=== PATIENT | female | born 1975 | race Caucasian/White ===

== ENCOUNTER 2016-12-29 06:31 | Emergency (ER) | payer SELFPAY ==
--- NOTE | 2016-12-29 07:08 | ER Document Report ---
ED General - General Chief Complaint: Abdominal Pain Stated Complaint: ABDOMINAL PAIN Mode of Arrival: Ambulatory Information source: Patient Notes: 41-year-old female presents with complaints of suprapubic pressure with burning on urination over the past 2-3 days. Patient denies any fevers chills nausea vomiting or diarrhea TRAVEL OUTSIDE OF THE [place] IN LAST 30 DAYS: No - HPI Onset: Other Onset/Duration: Persistent Quality of pain: Achy, Pressure Severity: Mild Pain Level: 1 Associated symptoms: Other Exacerbated by: Other - Urination Relieved by: Denies Similar symptoms previously: No Recently seen / treated by doctor: No - Related Data Allergies/Adverse Reactions: No Known Allergies Allergy (Verified 09/17/16 18:11) Past Medical History - Social History Smoking Status: Current Every Day Smoker Cigarette use (# per day): Yes Chew tobacco use (# tins/day): No Smoking Education Provided: No Frequency of alcohol use: Occasional Drug Abuse: None Family History: Reviewed & Not Pertinent Patient has suicidal ideation: No Patient has homicidal ideation: No Renal/ Medical History: Denies: Hx Peritoneal Dialysis Surgical Hx: Negative - Immunizations Hx Diphtheria, Pertussis, Tetanus Vaccination: Yes Review of Systems - Review of Systems Notes: REVIEW OF SYSTEMS: CONSTITUTIONAL : Denies fever, chills, or sweats. Denies recent illness. EENT: Denies eye, ear, throat, or mouth pain or symptoms. Denies nasal or sinus congestion or discharge. Denies throat, tongue, or mouth swelling or difficulty swallowing. CARDIOVASCULAR: Denies chest pain. Denies palpitations or racing or irregular heart beat. Denies ankle edema. RESPIRATORY: Denies cough, cold, or chest congestion. Denies shortness of breath, difficulty breathing, or wheezing. GASTROINTESTINAL: Suprapubic pain GENITOURINARY: Burning on urination FEMALE GENITOURINARY: Denies vaginal bleeding, heavy or abnormal periods, irregular periods. Denies vaginal discharge or odor. MUSCULOSKELETAL: Denies back or neck pain or stiffness. Denies joint pain or swelling. SKIN: Denies rash, lesions or sores. HEMATOLOGIC : Denies easy bruising or bleeding. LYMPHATIC: Denies swollen, enlarged glands. NEUROLOGICAL: Denies confusion or altered mental status. Denies passing out or loss of consciousness. Denies dizziness or lightheadedness. Denies headache. Denies weakness or paralysis or loss of use of either side. Denies problems with gait or speech. Denies sensory loss, numbness, or tingling. Denies seizures. PSYCHIATRIC: Denies anxiety or stress. Denies depression, suicidal ideation, or homicidal ideation. ALL OTHER SYSTEMS REVIEWED AND NEGATIVE. Dictation was performed using [email or web address] voice recognition software PHYSICAL EXAMINATION: GENERAL: Well-appearing, well-nourished and in no acute distress. HEAD: Atraumatic, normocephalic. EYES: Pupils equal round and reactive to light, extraocular movements intact, conjunctiva are normal. ENT: Nares patent, oropharynx clear without exudates. Moist mucous membranes. NECK: Normal range of motion, supple without lymphadenopathy LUNGS: Breath sounds clear to auscultation bilaterally and equal. No wheezes rales or rhonchi. HEART: Regular rate and rhythm without murmurs ABDOMEN: Soft, pressure sensation noted in suprapubic region Female : deferred Musculoskeletal: Normal range of motion, no pitting or edema. No cyanosis. NEUROLOGICAL: Cranial nerves grossly intact. Normal speech, normal gait. Normal sensory, motor exams PSYCH: Normal mood, normal affect. SKIN: Warm, Dry, normal turgor, no rashes or lesions noted. Physical Exam - Vital signs Vitals: Temp Pulse Resp BP Pulse Ox 97.5 F 102 H 16 115/75 97 12/29/16 06:34 12/29/16 06:34 12/29/16 06:34 12/29/16 06:34 12/29/16 06:34 Course - Re-evaluation Re-evalutation: 12/29/16 07:08 Physical examination presentation are concerning for urinary tract infection otherwise the patient does not appear ill 12/29/16 07:26 12/29/16 07:39 Urinalysis is consistent with UTI, patient will be started on antibiotics and is otherwise stable for discharge After performing a Medical Screening Examination, I estimate there is LOW risk for ACUTE APPENDICITIS, BOWEL OBSTRUCTION, ACUTE CHOLECYSTITIS, PERFORATED DIVERTICULITIS, INCARCERATED HERNIA, PANCREATITIS, PELVIC INFLAMMATORY DISEASE, PERFORATED ULCER, ECTOPIC , or TUBO-OVARIAN ABSCESS, thus I consider the discharge disposition reasonable. Also, there is no evidence or peritonitis , sepsis, or toxicity. The patient and I have discussed the diagnosis and risks , and we agree with discharging home with close follow-up with the understanding that symptoms and presentations can change. We also discussed returning to the Emergency Department immediately if new or worsening symptoms occur. We have discussed the symptoms which are most concerning (e.g., bloody stool, fever, changing or worsening pain, vomiting) that necessitate immediate return. - Vital Signs Vital signs: Temp Pulse Resp BP Pulse Ox 97.5 F 102 H 16 115/75 97 12/29/16 06:34 12/29/16 06:34 12/29/16 06:34 12/29/16 06:34 12/29/16 06:34 - Laboratory Laboratory results interpreted by me: 12/29/16 07:00 Urine Protein 100 H Urine Ketones TRACE H Ur Leukocyte Esterase MODERATE H Discharge - Discharge Clinical Impression: UTI (urinary tract infection) Qualifiers: Urinary tract infection type: acute cystitis Hematuria presence: with hematuria Qualified Code(s): N30.01 - Acute cystitis with hematuria Abdominal pain Qualifiers: Abdominal location: lower abdomen, unspecified Qualified Code(s): R10.30 - Lower abdominal pain, unspecified Condition: Stable Disposition: HOME, SELF-CARE Instructions: Urinary Tract Infection ([facility]) Additional Instructions: Follow up with your physician tomorrow for further care or return to the ED IMMEDIATELY if symptoms worsen or new concerns occur Prescriptions: Cephalexin Monohydrate [Keflex 500 mg Capsule] 500 mg PO BID #14 capsule
[2016-12-29 07:34] LABS: APPEARANCE,URINE TURBID; BILIRUBIN,URINE NEGATIVE (NEGATIVE); GLUCOSE, URINE NEGATIVE (NEGATIVE); KETONES,URINE TRACE mg/dL (NEGATIVE); LEUKOCYTE ESTERASE,URINE MODERATE (NEGATIVE); NITRITE,URINE NEGATIVE (NEGATIVE); PROTEIN,URINE 100 mg/dL (NEGATIVE); URINE SPECIFIC GRAVITY 1.029; UROBILINOGEN,URINE NEGATIVE mg/dL (<2.0)
[2016-12-29 08:10] VITALS: BP 105/51
== END 2016-12-29 08:10 | disposition home or self-care (01) ==
LOC: ER 06:31
DX: N30.01 Acute cystitis with hematuria (principal); R10.30 Lower abdominal pain, unspecified; F17.210 Nicotine dependence, cigarettes, uncomplicated
CPT/HCPCS: 81001; 81025; 99284

== ENCOUNTER 2017-01-06 12:28 | Emergency (ER) | payer SELFPAY ==
--- NOTE | 2017-01-06 12:36 | ER Document Report ---
ED Medical Screen (RME) - General Stated Complaint: POSSIBLE EYE INFECTION Mode of Arrival: Ambulatory Information source: Patient Notes: Patient presents emergency department with right eye irritation since Sunday. She reports is now moving into her left eye. Patient reports crusty when she wakes up in the morning. Does not wear contacts. Denies injury. I have greeted and performed a rapid initial assessment of this patient. A comprehensive ED assessment and evaluation of the patient, analysis of test results and completion of the medical decision making process will be conducted by additional ED providers. TRAVEL OUTSIDE OF THE [place] IN LAST 30 DAYS: No - Related Data Allergies/Adverse Reactions: No Known Allergies Allergy (Verified 09/17/16 18:11) Past Medical History Renal/ Medical History: Denies: Hx Peritoneal Dialysis - Immunizations Hx Diphtheria, Pertussis, Tetanus Vaccination: Yes
[2017-01-06] MEDS ORDERED: TETRACAINE HCL 0.5% OPH SOLN 2 ML OD ONE (13:47)
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
[2017-01-06 14:25] VITALS: BP 118/75
== END 2017-01-06 14:22 | disposition home or self-care (01) ==
LOC: ER 12:28
DX: H10.9 Unspecified conjunctivitis (principal); H57.11 Ocular pain, right eye; F17.210 Nicotine dependence, cigarettes, uncomplicated
CPT/HCPCS: 99283

== ENCOUNTER 2017-08-05 17:39 | Emergency (ER) | payer SELFPAY ==
[2017-08-05 17:48] VITALS: BP 119/78
[2017-08-05] MEDS ORDERED: OXYCODONE-ACETAMINOPHEN 5-325 MG TABLET PO ONE (18:22)
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
[2017-08-05] MEDS ORDERED: HYDROCODONE/ACETAMINOPHEN 5-325 MG 6 TAB/DSPK PO PRN (19:15)
== END 2017-08-05 19:25 | disposition home or self-care (01) ==
LOC: ER 17:39
DX: S89.92XA Unspecified injury of left lower leg, initial encounter (principal); V17.0XXA Pedal cycle driver injured in collision with fixed or stationary object in nontraffic accident, initial encounter; Y93.55 Activity, bike riding; F17.200 Nicotine dependence, unspecified, uncomplicated; Z98.51 Tubal ligation status
CPT/HCPCS: 99283

== ENCOUNTER 2017-11-14 20:57 | Emergency (ER) | payer SELFPAY ==
--- NOTE | 2017-11-14 23:19 | ER Document Report ---
ED Medical Screen (RME) - General Chief Complaint: Abdominal Pain Stated Complaint: ABDOMINAL PAIN,NAUSEA,HEADACHE Time Seen by Provider: 11/14/17 23:16 Mode of Arrival: Ambulatory Information source: Patient Notes: Pt is a 42 year old female who presents to the ER today for a mass in her left upper abdomen that's been there for "a long time" but started hurting her 2 days ago with n/v. She admits she hasn't really had a bowel movement in 2 days. Denies diarrhea, fever/chills. hasn't been evaluated for this mass. TRAVEL OUTSIDE OF THE [place] IN LAST 30 DAYS: No - Related Data Allergies/Adverse Reactions: Penicillins Allergy (Verified 08/05/17 17:45) Past Medical History - General Information source: Patient Renal/ Medical History: Denies: Hx Peritoneal Dialysis Past Surgical History: Reports: Hx Tubal Ligation - Immunizations Hx Diphtheria, Pertussis, Tetanus Vaccination: Yes - 2014 History of Influenza Vaccine for 07/2017 - 12/2017 Season: Yes Influenza Administration Date for 07/2017 - 12/2017 Season: 07/29/16 Review of Systems - Review of Systems Gastrointestinal: See HPI Physical Exam - Notes Notes: PHYSICAL EXAMINATION: GENERAL: Well-appearing and in no acute distress. ABDOMEN: Soft, LUQ/epigastric mass with tenderness. No guarding, no rebound
[2017-11-14 23:41] LABS: ABSOLUTE BASOPHILS # (AUTO) 0.1 10^3/uL (0.0-0.2); ABSOLUTE EOSINOPHILS # (AUTO) 0.1 10^3/uL (0.0-0.6); ABSOLUTE LYMPHOCYTES (AUTO) 2.4 10^3/uL (0.5-4.7); ABSOLUTE MONOCYTES (AUTO) 0.5 10^3/uL (0.1-1.4); ABSOLUTE NEUT (AUTO) 4.5 10^3/uL (1.7-8.2); EOSINOPHILS % (AUTO) 1.7 % (0-6); HEMATOCRIT 42.3 % (36.0-47.0); HEMOGLOBIN 14.4 g/dL (12.0-15.5); LYMPHOCYTES % (AUTO) 31.7 % (13-45); MEAN CORPUSCULAR HEMOGLOBIN 33.7 pg (27.0-33.4); MEAN CORPUSCULAR HGB CONC 34.1 g/dL (32.0-36.0); MEAN CORPUSCULAR VOLUME 99 fl (80-97); MONOCYTES % (AUTO) 6.4 % (3-13); PLATELET COUNT 235 10^3/uL (150-450); RED BLOOD COUNT 4.28 10^6/uL (3.72-5.28); RED CELL DISTRIBUTION WIDTH 13.8 % (11.5-14.0); SEGMENTED NEUTROPHILS % (AUTO) 59.2 % (42-78); TOTAL CELLS COUNTED % (AUTO) 100 %; WHITE BLOOD COUNT 7.6 10^3/uL (4.0-10.5)
[2017-11-14 23:50] LABS: ALANINE AMINOTRANSFERASE 25 U/L (9-52); ALBUMIN 4.7 g/dL (3.5-5.0); ALKALINE PHOSPHATASE 50 U/L (38-126); ANION GAP 7 (5-19); ASPARTATE AMINO TRANSFERASE 20 U/L (14-36); BILIRUBIN,DIRECT 0.2 mg/dL (0.0-0.4); BILIRUBIN,TOTAL 0.2 mg/dL (0.2-1.3); BLOOD UREA NITROGEN 13 mg/dL (7-20); CALCIUM 10.4 mg/dL (8.4-10.2); CARBON DIOXIDE 28 mmol/L (22-30); CHLORIDE 102 mmol/L (98-107); GLUCOSE 91 mg/dL (75-110); POTASSIUM 5.1 mmol/L (3.6-5.0); SODIUM 137.3 mmol/L (137-145); TOTAL PROTEIN 6.9 g/dL (6.3-8.2)
[2017-11-14 23:54] LABS: APPEARANCE,URINE SLIGHTLY-CLOUDY; BILIRUBIN,URINE NEGATIVE (NEGATIVE); COLOR,URINE YELLOW; GLUCOSE, URINE NEGATIVE (NEGATIVE); KETONES,URINE NEGATIVE (NEGATIVE); LEUKOCYTE ESTERASE,URINE NEGATIVE (NEGATIVE); NITRITE,URINE NEGATIVE (NEGATIVE); PROTEIN,URINE NEGATIVE (NEGATIVE); URINE SPECIFIC GRAVITY 1.014; UROBILINOGEN,URINE NEGATIVE mg/dL (<2.0)
--- NOTE | 2017-11-15 02:27 | RADIOLOGY REPORT (SQ) ---
EXAM DESCRIPTION: U/S ABDOMEN LIMITED W/O DOP CLINICAL HISTORY: 42 years, Female, mass luq/epigastric COMPARISON: None. TECHNIQUE: Transabdominal. With and without Valsalva maneuvers. LIMITATIONS: None. FINDINGS: 2.4 x 1.8 x 0.6 cm likely fat only hernia of the left upper quadrant abdominal wall with 0.6 cm fascial discontinuity; no sonographic evidence of suspicious mass, no bowel involvement, and no fluid collection. IMPRESSION: Likely 2.4 cm fat only hernia of the left upper quadrant abdominal wall. 2011 [employer]- All Rights Reserved
[2017-11-15] MEDS ORDERED: KETOROLAC TROMETHAMINE 60 MG/2 ML SDV IM ONE (02:40)
--- NOTE | 2017-11-15 02:44 | ER Document Report ---
ED GI/ - General Chief Complaint: Abdominal Pain Stated Complaint: ABDOMINAL PAIN,NAUSEA,HEADACHE Time Seen by Provider: 11/14/17 23:16 Mode of Arrival: Ambulatory Information source: Patient Notes: Patient is a 42-year-old female who presents to the ER today for a mass to her left upper quadrant times "very long time." Patient him to the ER today because she states that 2 days ago it started hurting her and giving her nausea and vomiting. She has never had this mass evaluated before. She denies any fever, chills, diarrhea. She does state that she has not really had a bowel movement in 2 days. She also complains of sinus congestion, productive cough, chills and body aches 2 weeks. She denies any shortness of breath or wheezing. TRAVEL OUTSIDE OF THE [place] IN LAST 30 DAYS: No - Related Data Allergies/Adverse Reactions: Penicillins Allergy (Verified 08/05/17 17:45) Past Medical History - General Information source: Patient - Social History Smoking Status: Unknown if Ever Smoked Family History: Reviewed & Not Pertinent Renal/ Medical History: Denies: Hx Peritoneal Dialysis Past Surgical History: Reports: Hx Tubal Ligation - Immunizations Hx Diphtheria, Pertussis, Tetanus Vaccination: Yes - 2014 Review of Systems - Review of Systems Constitutional: No symptoms reported EENT: See HPI Cardiovascular: No symptoms reported Respiratory: See HPI Gastrointestinal: See HPI Genitourinary: No symptoms reported Female Genitourinary: No symptoms reported Musculoskeletal: No symptoms reported Skin: No symptoms reported Hematologic/Lymphatic: No symptoms reported Neurological/Psychological: No symptoms reported Physical Exam - Vital signs Vitals: Temp Pulse Resp BP Pulse Ox 98.5 F 79 20 135/73 H 94 11/14/17 21:01 11/14/17 21:01 11/14/17 21:01 11/14/17 21:01 11/14/17 21:01 - Notes Notes: PHYSICAL EXAMINATION: GENERAL: Well-appearing and in no acute distress. HEAD: Atraumatic, normocephalic. EYES: Pupils equal round and reactive to light, extraocular movements intact, sclera anicteric, conjunctiva are normal. NECK: Normal range of motion, supple without lymphadenopathy LUNGS: Cough, otherwise, CTAB and equal. No wheezes rales or rhonchi. HEART: Regular rate and rhythm without murmurs ABDOMEN: Soft, mass to LUQ with tenderness. No guarding, no rebound BACK: no vertebral tenderness, normal ROM GI/: no CVA tenderness EXTREMITIES: Normal range of motion, no pitting edema. No cyanosis. NEUROLOGICAL: Cranial nerves grossly intact. Normal sensory/motor exams. PSYCH: Normal mood, normal affect. SKIN: Warm, Dry, normal turgor, no rashes or lesions noted Course - Re-evaluation Re-evalutation: 11/15/17 02:41 There is is 2.5 cm fat-containing hernia to the left upper quadrant abdominal wall seen on ultrasound today. Lab work is unremarkable with normal white blood cell count. Patient has not vomited here. I will give her Toradol for pain and have her follow-up with Dr. Guaman, surgeon, outpatient who I did discuss this case with today. He states there is nothing urgent to do here in the OR tonight. - Vital Signs Vital signs: Temp Pulse Resp BP Pulse Ox 98.5 F 79 20 135/73 H 94 11/14/17 21:01 11/14/17 21:01 11/14/17 21:01 11/14/17 21:01 11/14/17 21:01 - Laboratory Result Diagrams: 11/14/17 23:25 11/14/17 23:25 Laboratory results interpreted by me: 11/14/17 11/14/17 23:25 23:25 MCV 99 H MCH 33.7 H Potassium 5.1 H Calcium 10.4 H Discharge - Discharge Clinical Impression: Hernia, Bronchitis Sinusitis Qualifiers: Sinusitis location: unspecified location Chronicity: acute Recurrence: non- recurrent Qualified Code(s): J01.90 - Acute sinusitis, unspecified Condition: Stable Disposition: HOME, SELF-CARE Additional Instructions: Return immediately for any new or worsening symptoms. Follow up with primary care provider, call tomorrow to make followup appointment. Prescriptions: Ketorolac Tromethamine [Toradol 10 mg Tablet] 10 mg PO Q6HP PRN #30 tablet PRN Reason: Azithromycin [Zithromax 250 mg Tablet] 250 mg PO ASDIR PRN #6 tablet PRN Reason: D-Methorphan Hb/Prometh HCl [Promethazine-Dm Syrup] 5 ml PO Q8 PRN #120 ml PRN Reason: Ondansetron [Zofran Odt 4 mg Tablet] 1 - 2 tab PO Q4H PRN #30 tab.rapdis PRN Reason: For Nausea/Vomiting Forms: Return to Work Referrals: LANDRY GUAMAN MD [[facility] RODRIGUEZ] - Follow up as needed
[2017-11-15 03:16] VITALS: BP 108/68
== END 2017-11-15 03:16 | disposition home or self-care (01) ==
LOC: ER 20:57
DX: K43.9 Ventral hernia without obstruction or gangrene (principal); J01.90 Acute sinusitis, unspecified; J40 Bronchitis, not specified as acute or chronic; R11.2 Nausea with vomiting, unspecified; R19.4 Change in bowel habit; R05 Cough; R68.83 Chills (without fever); Z88.0 Allergy status to penicillin
CPT/HCPCS: 99284; 96372; 36415; 83690; 85025; 80053; 81001; 76705; J1885

== ENCOUNTER 2017-11-21 00:35 | Emergency (ER) | payer SELFPAY ==
[2017-11-21] MEDS ORDERED: IPRATROPIUM/ALBUTEROL 0.5-2.5 MG/3 ML AMPUL NEB ONE ×2 (01:53→02:43)
[2017-11-21] MEDS ORDERED: NORMAL SALINE 1000 ML 1,000 ML IV PRN (01:55)
--- NOTE | 2017-11-21 01:57 | ER Document Report ---
ED General - General Chief Complaint: Shortness Of Breath Stated Complaint: ABDOMINAL PAIN,SHORTNESS OF BREATH Time Seen by Provider: 11/21/17 01:52 Mode of Arrival: Ambulatory Information source: Patient Notes: This is a 42-year-old female recently diagnosed with an abdominal wall hernia who presents to the emergency room with worsening pain to the abdomen, shortness of breath. Of significance the patient states that she feels food sometimes gets stuck. He does not have that sensation now. She does report having wheezing and shortness of breath most of the day. TRAVEL OUTSIDE OF THE [place] IN LAST 30 DAYS: No - HPI Onset: Last week Onset/Duration: Gradual Quality of pain: No pain Severity: None Pain Level: Denies Associated symptoms: Shortness of breath. denies: Chest pain, Diarrhea, Fever, Nausea, Vomiting Exacerbated by: Denies Relieved by: Denies Similar symptoms previously: Yes Recently seen / treated by doctor: Yes - Related Data Allergies/Adverse Reactions: Penicillins Allergy (Verified 08/05/17 17:45) Past Medical History - General Information source: Patient - Social History Smoking Status: Never Smoker Cigarette use (# per day): No Chew tobacco use (# tins/day): No Frequency of alcohol use: None Drug Abuse: None Lives with: Family Family History: Reviewed & Not Pertinent Patient has suicidal ideation: No Patient has homicidal ideation: No - Medical History Medical History: Negative Renal/ Medical History: Denies: Hx Peritoneal Dialysis Past Surgical History: Reports: Hx Tubal Ligation - Immunizations Hx Diphtheria, Pertussis, Tetanus Vaccination: Yes - 2014 Review of Systems - Review of Systems Constitutional: denies: Chills, Fever EENT: No symptoms reported Cardiovascular: No symptoms reported Respiratory: See HPI Gastrointestinal: See HPI Genitourinary: No symptoms reported Female Genitourinary: No symptoms reported Musculoskeletal: No symptoms reported Skin: No symptoms reported Hematologic/Lymphatic: No symptoms reported Neurological/Psychological: No symptoms reported Physical Exam - Vital signs Vitals: Temp Pulse Resp BP Pulse Ox 98.8 F 84 16 113/76 94 11/21/17 01:13 11/21/17 01:13 11/21/17 01:13 11/21/17 01:13 11/21/17 01:13 Notes: Physical exam: GENERAL: 42-year-old female, alert and oriented 3 HEAD: Atraumatic, normocephalic. EYES: Pupils equal round and reactive to light, extraocular movements intact, sclera anicteric, conjunctiva are normal. ENT: TMs normal, nares patent, oropharynx clear without exudates. Moist mucous membranes. NECK: Normal range of motion, supple without obvious mass or JVD. LUNGS: Breath sounds clear to auscultation bilaterally and equal. No wheezes rales or rhonchi. HEART: Regular rate and rhythm without murmurs, rubs or gallops. ABDOMEN: Soft, normoactive bowel sounds. She has a soft fullness in the left upper quadrant. Whether this is an abdominal wall hernia is difficult to say clinically. There is no overlying erythema. There is no bowel sounds in the soft tissue. No tenderness to palpation. No guarding, no rebound. EXTREMITIES: Normal range of motion, no pitting or edema. No clubbing or cyanosis. NEUROLOGICAL: Cranial nerves II through XII grossly intact. Normal speech, moving all extremities. PSYCH: Normal mood, normal affect. SKIN: Warm, Dry, normal turgor, no rashes or lesions noted. Course - Re-evaluation Re-evalutation: 11/21/17 03:37 Note: The patient is breathing much better after 2 nebulizers. I will get her inhaler to go home. I have offered her third nebulizer but she states she feels good enough to go home without it. As far as the issue of a possible abdominal wall hernia, I do not see it on CAT scan. There is a hiatal hernia which can certainly give her many of the GI symptoms that she has been experiencing (intermittent food getting stuck, heartburn). In either case, she has an appointment with the surgical clinic at 10 AM. The addition of the CT scan will help them in their evaluation. Patient appears stable enough and comfortable to go home. - Vital Signs Vital signs: Temp Pulse Resp BP Pulse Ox 98.8 F 84 12 117/78 99 11/21/17 01:13 11/21/17 01:13 11/21/17 02:13 11/21/17 02:13 11/21/17 02:13 - Laboratory Result Diagrams: 11/21/17 02:10 Laboratory results interpreted by me: 11/21/17 02:10 MCV 98 H MCH 33.7 H - Diagnostic Test Radiology reviewed: Image reviewed, Reports reviewed - CT scan shows a hiatal hernia. Discharge - Discharge Clinical Impression: Reactive airway disease. Condition: Stable Disposition: HOME, SELF-CARE Additional Instructions: Follow-up in the surgical clinic as planned. Use the inhaler as needed: 2 puffs every 4-6 hours as needed. I recommend taking Pepcid 20 mg daily for the next month. This medicine is over -the-counter. Thank you for choosing [facility] for your care. The examination and treatment you have received in the Emergency Department today has been rendered on an emergency basis only and is not intended to be a substitute for complete medical care. You should contact your doctor as it is important that she/he examine you for any new or remaining problems. If your problem worsens or new symptoms appear and you are unable to arrange prompt follow-up care, return to the Emergency Department. Specific signs to look out for: Worsening shortness of breath, worsening abdominal pain Primary Care Doctor's affiliated with [facility]: If you do not have a primary care doctor or you are unable to get an appointment during that time, you can try one of the doctor's below. These are internal medicine doctor's that have admitting priveledges to the hospital ( they will see you both in the office as well as in this hospital if you are ever hospitalized here). Dr. Raulito Ayala [address], [place] [address] [phone] Dr Roberts Address: [address] [place] [address] , [place] [address] Dr Aguirre Address: [address] [place] [address] , [place] [address] If you don't have insurance: follow-up at the [facility] which is a free clinic. [address], [place] [address] [phone] Referrals: RICKEY GEORGE MD [ACTIVE STAFF] - 11/21/17 10:00 am
[2017-11-21 02:27] LABS: ABSOLUTE BASOPHILS # (AUTO) 0.1 10^3/uL (0.0-0.2); ABSOLUTE EOSINOPHILS # (AUTO) 0.1 10^3/uL (0.0-0.6); ABSOLUTE LYMPHOCYTES (AUTO) 2.4 10^3/uL (0.5-4.7); ABSOLUTE MONOCYTES (AUTO) 0.5 10^3/uL (0.1-1.4); ABSOLUTE NEUT (AUTO) 4.3 10^3/uL (1.7-8.2); BASOPHILS % (AUTO) 1.1 % (0-2); EOSINOPHILS % (AUTO) 1.1 % (0-6); HEMATOCRIT 42.3 % (36.0-47.0); HEMOGLOBIN 14.5 g/dL (12.0-15.5); LYMPHOCYTES % (AUTO) 32.8 % (13-45); MEAN CORPUSCULAR HEMOGLOBIN 33.7 pg (27.0-33.4); MEAN CORPUSCULAR HGB CONC 34.3 g/dL (32.0-36.0); MEAN CORPUSCULAR VOLUME 98 fl (80-97); MONOCYTES % (AUTO) 6.3 % (3-13); PLATELET COUNT 245 10^3/uL (150-450); RED CELL DISTRIBUTION WIDTH 13.7 % (11.5-14.0); SEGMENTED NEUTROPHILS % (AUTO) 58.7 % (42-78); TOTAL CELLS COUNTED % (AUTO) 100 %; WHITE BLOOD COUNT 7.3 10^3/uL (4.0-10.5)
--- NOTE | 2017-11-21 03:19 | RADIOLOGY REPORT (SQ) ---
EXAM DESCRIPTION: CT ABDOMEN AND PELVIS WITH CONTRAST CLINICAL HISTORY: Left upper and lower quadrant pain. COMPARISON: None Available. TECHNIQUE: CT of the abdomen and pelvis are performed during IV bolus administration of 83.1 mL of Isovue-370. DLP: 1162.19 mGycm FINDINGS: Abdomen: The liver has normal size and density. No intrahepatic mass or biliary dilatation. Calcified structure in the posterior right hepatic lobe likely representing granulomas. No calcified gallstones. The spleen, pancreas, and adrenal glands are unremarkable. The kidneys have normal size and contour without evidence of solid mass or hydronephrosis. The aorta and IVC have normal caliber and position. The portal vein patent. The proximal visceral and renal arteries are patent. No free intraperitoneal air. Moderate hiatal hernia. Pelvis: 3.5 cm left ovarian cyst. This is almost certainly benign. No follow-up imaging recommended. Uterus is not enlarged. Urinary bladder is unremarkable. No free pelvic fluid or lymphadenopathy. No dilated loops of large or small bowel. Normal appendix. Small fat-containing left inguinal hernia. The visualized lung bases are clear. No destructive bone lesions identified. IMPRESSION: 1. No acute inflammatory or obstructive abnormality identified. 2. Moderate hiatal hernia. This exam was performed according to our departmental dose-optimization program, which includes automated exposure control, adjustment of the mA and/or kV according to patient size and/or use of iterative reconstruction technique.
[2017-11-21] MEDS ORDERED: ALBUTEROL SULFATE HFA (90 MCG/PUFF) 8 GM MDI (1 MDI/ER DISP) IH PRN (03:35)
--- NOTE | 2017-11-21 03:47 | RADIOLOGY REPORT (SQ) ---
EXAM DESCRIPTION: CHEST PA/LAT CLINICAL HISTORY: sob COMPARISON: 09/17/2016 FINDINGS: Frontal and lateral views of the chest. The cardiomediastinal silhouette has normal size and contour. No consolidation, pneumothorax, or pleural effusion. No displaced rib fractures identified. Upper abdominal soft tissues are unremarkable. Leads overlie the chest. IMPRESSION: 1. No acute pulmonary process identified.
[2017-11-21 03:59] VITALS: BP 102/53
== END 2017-11-21 03:58 | disposition home or self-care (01) ==
LOC: ER 00:35
DX: J45.909 Unspecified asthma, uncomplicated (principal); K44.9 Diaphragmatic hernia without obstruction or gangrene; R06.02 Shortness of breath; Z88.0 Allergy status to penicillin; Z98.51 Tubal ligation status
CPT/HCPCS: 94640 ×2; 99285; 96360; 36415; 84702; 85025; 71046; 74177; J7030; J3490; J7620

== ENCOUNTER 2017-11-21 11:59 | Emergency (ER) | payer SELFPAY ==
--- NOTE | 2017-11-21 13:02 | ER Document Report ---
ED Medical Screen (RME) - General Chief Complaint: Chest Pain Stated Complaint: CHEST PAIN Time Seen by Provider: 11/21/17 12:57 Mode of Arrival: Ambulatory Information source: Patient Notes: 42 yo smoker , non dm, non htn, non hyperlipedemic emale sent by dr. burrell who she saw this morning for 1st consultation for hiatel hernia. He wanted her to be seen for chest and heart evaluation. She was c/o of shortness of breath (for 1 week) and epigastric pain and he listened to her heart. Dx. RAD last night in the ER given neb tx and inhaler. No chest pain. Feels less SOB since seen in ER last night. Insp and Exp wheezing bilateral. No rales or rhonic. Strong smell of tobacco. TRAVEL OUTSIDE OF THE [place] IN LAST 30 DAYS: No - Related Data Allergies/Adverse Reactions: Penicillins Allergy (Verified 08/05/17 17:45) Past Medical History Renal/ Medical History: Denies: Hx Peritoneal Dialysis Past Surgical History: Reports: Hx Tubal Ligation - Immunizations Hx Diphtheria, Pertussis, Tetanus Vaccination: Yes - 2014 History of Influenza Vaccine for 07/2017 - 12/2017 Season: Yes Influenza Administration Date for 07/2017 - 12/2017 Season: 07/29/16 Physical Exam - Vital signs Vitals: Temp Pulse Resp BP Pulse Ox 98.5 F 64 17 117/68 95 11/21/17 12:21 11/21/17 12:21 11/21/17 12:21 11/21/17 12:21 11/21/17 12:21 Course - Vital Signs Vital signs: Temp Pulse Resp BP Pulse Ox 98.5 F 64 17 117/68 95 11/21/17 12:21 11/21/17 12:21 11/21/17 12:21 11/21/17 12:21 11/21/17 12:21
[2017-11-21] MEDS ORDERED: ASPIRIN 81 MG TABLET, CHEWABLE PO ONE (13:05)
--- NOTE | 2017-11-21 13:45 | RADIOLOGY REPORT (SQ) ---
EXAM DESCRIPTION: CHEST PA/LAT COMPLETED DATE/TIME: 11/21/2017 1:15 pm REASON FOR STUDY: epigastric pain COMPARISON: 11/21/2017 EXAM PARAMETERS: NUMBER OF VIEWS: two views TECHNIQUE: Digital Frontal and Lateral radiographic views of the chest acquired. RADIATION DOSE: NA LIMITATIONS: none FINDINGS: LUNGS AND PLEURA: No opacities, masses or pneumothorax. No pleural effusion. MEDIASTINUM AND HILAR STRUCTURES: No masses or contour abnormalities. HEART AND VASCULAR STRUCTURES: Heart normal size. No evidence for failure. BONES: No acute findings. HARDWARE: None in the chest. OTHER: No other significant finding. IMPRESSION: NO SIGNIFICANT RADIOGRAPHIC FINDING IN THE CHEST. TECHNICAL DOCUMENTATION: JOB ID: [id number] [employer]- All Rights Reserved
[2017-11-21 14:17] LABS: ABSOLUTE BASOPHILS # (AUTO) 0.1 10^3/uL (0.0-0.2); ABSOLUTE EOSINOPHILS # (AUTO) 0.1 10^3/uL (0.0-0.6); ABSOLUTE LYMPHOCYTES (AUTO) 2.3 10^3/uL (0.5-4.7); ABSOLUTE MONOCYTES (AUTO) 0.5 10^3/uL (0.1-1.4); ABSOLUTE NEUT (AUTO) 5.8 10^3/uL (1.7-8.2); EOSINOPHILS % (AUTO) 0.8 % (0-6); HEMATOCRIT 41.5 % (36.0-47.0); HEMOGLOBIN 14.2 g/dL (12.0-15.5); LYMPHOCYTES % (AUTO) 26.3 % (13-45); MEAN CORPUSCULAR HEMOGLOBIN 33.4 pg (27.0-33.4); MEAN CORPUSCULAR HGB CONC 34.3 g/dL (32.0-36.0); MEAN CORPUSCULAR VOLUME 97 fl (80-97); MONOCYTES % (AUTO) 5.8 % (3-13); PLATELET COUNT 254 10^3/uL (150-450); RED BLOOD COUNT 4.27 10^6/uL (3.72-5.28); RED CELL DISTRIBUTION WIDTH 13.8 % (11.5-14.0); SEGMENTED NEUTROPHILS % (AUTO) 66.1 % (42-78); TOTAL CELLS COUNTED % (AUTO) 100 %; WHITE BLOOD COUNT 8.7 10^3/uL (4.0-10.5)
[2017-11-21 14:56] LABS: ALANINE AMINOTRANSFERASE 27 U/L (9-52); ALBUMIN 4.5 g/dL (3.5-5.0); ALKALINE PHOSPHATASE 55 U/L (38-126); ANION GAP 10 (5-19); ASPARTATE AMINO TRANSFERASE 19 U/L (14-36); BILIRUBIN,DIRECT 0.2 mg/dL (0.0-0.4); BILIRUBIN,TOTAL 0.5 mg/dL (0.2-1.3); BLOOD UREA NITROGEN 13 mg/dL (7-20); CALCIUM 9.6 mg/dL (8.4-10.2); CARBON DIOXIDE 24 mmol/L (22-30); CHLORIDE 105 mmol/L (98-107); CREATINE KINASE 59 U/L (30-135); GLUCOSE 83 mg/dL (75-110); POTASSIUM 4.6 mmol/L (3.6-5.0); SODIUM 138.7 mmol/L (137-145); TOTAL PROTEIN 6.7 g/dL (6.3-8.2)
[2017-11-21 15:08] LABS: CREATINE KINASE MB 1.08 ng/mL (<4.55)
[2017-11-21 15:14] LABS: TROPONIN I < 0.012 ng/mL
--- NOTE | 2017-11-21 17:55 | ER Document Report ---
ED Cardiac - General Chief Complaint: Chest Pain Stated Complaint: CHEST PAIN Time Seen by Provider: 11/21/17 12:57 Mode of Arrival: Ambulatory Notes: 42-year-old female patient to the ER with worsening cough. Intermittent chest pain. Patient is a smoker. Was seen here last night and given albuterol. Went to her regular doctor. Regular doctor wanted her seen again for her chest pain. Patient states the pain is mostly when she takes a deep breath. Denies any other symptoms at this time. TRAVEL OUTSIDE OF THE [place] IN LAST 30 DAYS: No - HPI Patient complains to provider of: Chest tightness Was the onset of pain: Gradual Quality of pain: Constant Chest pain radiation location: denies: Left jaw, Left arm, Left shoulder Severity now: Mild Severity at worst: Mild Pain level currently: 1 Chest pain precipitating factors: Coughing Cardiac risk factors: None - Related Data Allergies/Adverse Reactions: Penicillins Allergy (Verified 08/05/17 17:45) Past Medical History - General Information source: Patient - Social History Smoking Status: Current Every Day Smoker Chew tobacco use (# tins/day): No Frequency of alcohol use: Occasional Drug Abuse: None Lives with: Spouse/Significant other Family History: Reviewed & Not Pertinent Patient has suicidal ideation: No Patient has homicidal ideation: No - Past Medical History Cardiac Medical History: Reports: None Pulmonary Medical History: Reports: None EENT Medical History: Reports: None Endocrine Medical History: Reports: None Renal/ Medical History: Denies: Hx Peritoneal Dialysis Malignancy Medical History: Reports: None GI Medical History: Reports: None Musculoskeltal Medical History: Reports None Psychiatric Medical History: Reports: None Traumatic Medical History: Reports: None Past Surgical History: Reports: Hx Tubal Ligation - Immunizations Hx Diphtheria, Pertussis, Tetanus Vaccination: Yes - 2014 Review of Systems - Review of Systems Constitutional: denies: Chills, Fever, Malaise, Weakness EENT: denies: Eye pain, Blurred vision, Sinus pressure, Sinus discharge Cardiovascular: Chest pain, Dyspnea. denies: Palpitations, Heart racing, Orthopnea, Syncope, Dizziness Respiratory: Cough, Hurts to breathe, Short of breath, Wheezing Gastrointestinal: Other - States that she has a hernia that she needs to get fixed that hurts her every now and then. denies: Abdomen distended, Abdominal pain, Diarrhea Genitourinary: denies: Burning, Dysuria, Discharge Musculoskeletal: denies: Back pain, Gout, Joint pain, Joint swelling, Muscle pain Skin: denies: Lesions, Lumps, Rash Hematologic/Lymphatic: denies: Anemia, Blood clots, Easy bleeding, Easy bruising Neurological/Psychological: denies: Confusion, Lost consciousness, Numbness Physical Exam - Vital signs Vitals: Temp Pulse Resp BP Pulse Ox 98.5 F 64 17 117/68 95 11/21/17 12:21 11/21/17 12:21 11/21/17 12:21 11/21/17 12:21 11/21/17 12:21 Interpretation: Normal - General General appearance: Appears well, Alert - HEENT Head: Normocephalic, Atraumatic Eyes: Normal Pupils: PERRL - Respiratory Respiratory status: No respiratory distress Chest status: Nontender Breath sounds: Nonproductive cough, Wheezing Chest palpation: Normal - Cardiovascular Rhythm: Regular Heart sounds: Normal auscultation Murmur: No - Abdominal Inspection: Normal Distension: No distension Bowel sounds: Normal Tenderness: Nontender Organomegaly: No organomegaly - Back Back: Normal, Nontender - Extremities General upper extremity: Normal inspection, Nontender, Normal color, Normal ROM , Normal temperature General lower extremity: Normal inspection, Nontender, Normal color, Normal ROM , Normal temperature, Normal weight bearing. No: Morales's sign - Neurological Neuro grossly intact: Yes Cognition: Normal Orientation: AAOx4 Pako Coma Scale Eye Opening: Spontaneous Pako Coma Scale Verbal: Oriented Dixon Coma Scale Motor: Obeys Commands Pako Coma Scale Total: 15 Speech: Normal Motor strength normal: LUE, RUE, LLE, RLE Sensory: Normal - Psychological Associated symptoms: Normal affect, Normal mood - Skin Skin Temperature: Warm Skin Moisture: Dry Skin Color: Normal Course - Re-evaluation Re-evalutation: 11/21/17 18:36 Patient is not having chest pain at this time. Very low probability of a cardiac event. Patient is 42 with no significant past medical history or family history. Is audibly wheezing. Tightness on the chest with shortness of breath with wheezing. Is a smoker. Giving prednisone, antibiotics and breathing treatments at this time. - Vital Signs Vital signs: Temp Pulse Resp BP Pulse Ox 98.5 F 64 17 117/68 95 11/21/17 12:21 11/21/17 12:21 11/21/17 12:21 11/21/17 12:21 11/21/17 12:21 - Laboratory Result Diagrams: 11/21/17 14:05 11/21/17 14:05 Discharge - Discharge Condition: Good Disposition: HOME, SELF-CARE Instructions: Chest Pain of Unclear Cause ([facility]) Additional Instructions: Bronchitis with Bronchospasm (Wheezing) You have bronchitis with bronchospasm (wheezing). Sometimes people develop wheezing with a chest cold. This occurs either because of an underlying tendency toward asthma or because the virus itself irritates the bronchial tubes. This irritation causes cough, shortness of breath, and wheezing. Emergency treatment of bronchospasm may include adrenaline shots or bronchodilator aerosol. You may feel lightheaded and have a rapid pulse for an hour or two. Rest and get plenty of fluids. At home, we'll treat you with a bronchodilator inhaler. Corticosteroids may be required for some patients. Until you recover, avoid chemical fumes, dusts, pollens, and exercising in very cold or dry air. If you smoke, stop now! Most cases of bronchitis get better without antibiotics. We prescribe antibiotics when we believe bacteria are damaging your airways, or if there's high risk the bronchitis will worsen into pneumonia. Increase your fluid intake. A cool mist humidifier may make your lungs more comfortable. An expectorant (cough medicine that loosens phlegm) can help. Repeated episodes of bronchitis and bronchospasm may result in lung damage -- for example, chronic bronchitis, recurrent pneumonias, or emphysema. If you develop a fever, increased wheezing, chest pain, or severe shortness of breath, you should contact the doctor immediately. Prescriptions: Azithromycin 250 mg PO DAILY 6 Days #6 tablet Prednisone [Deltasone 20 mg Tablet] 3 tab PO DAILY 5 Days tablet
[2017-11-21] MEDS ORDERED: IPRATROPIUM/ALBUTEROL 0.5-2.5 MG/3 ML AMPUL NEB ONE (18:33)
[2017-11-21] MEDS ORDERED: AZITHROMYCIN 250 MG TABLET PO ONE (18:33)
[2017-11-21] MEDS ORDERED: PREDNISONE 20 MG TABLET PO ONE (18:33)
[2017-11-21 19:26] VITALS: BP 110/68
--- NOTE | 2017-11-22 11:54 | EKG REPORT ---
SEVERITY:- NORMAL ECG - SINUS RHYTHM : Confirmed by: Tami Kelly 22-Nov-2017 11:53:15
== END 2017-11-21 19:26 | disposition home or self-care (01) ==
LOC: ER 11:59
DX: J40 Bronchitis, not specified as acute or chronic (principal); R07.89 Other chest pain; R05 Cough; R07.1 Chest pain on breathing; R06.02 Shortness of breath; R06.2 Wheezing; F17.200 Nicotine dependence, unspecified, uncomplicated; Z88.0 Allergy status to penicillin
CPT/HCPCS: 93005; 94640; 99284; 36415; 82553; 82550; 85025; 80053; 84484; 71046; 93010; J7512; J7620

== ENCOUNTER 2017-12-10 17:37 | Emergency (ER) | payer SELFPAY ==
[2017-12-10 18:27] VITALS: BP 116/76
[2017-12-10] MEDS ORDERED: IPRATROPIUM/ALBUTEROL 0.5-2.5 MG/3 ML AMPUL NEB ONE (19:56)
[2017-12-10] MEDS ORDERED: PREDNISONE 20 MG TABLET PO ONE (19:56)
[2017-12-10] MEDS ORDERED: BENZONATATE 100 MG CAPSULE PO ONE (19:57)
--- NOTE | 2017-12-10 19:58 | ER Document Report ---
HPI - HPI Patient complains to provider of: cough, wheezing, shortness of breath Pain Level: 4 Context: Patient is a 42-year-old female that comes emergency department for chief complaint of 2-3 days of worsening cough, wheezing, chills, tightness in her chest, and congestion. She states that she was seen a few weeks ago, treated for similar symptoms and resolved but now she has developed them again. She smokes. She denies any daily medications. - REPRODUCTIVE Reproductive: DENIES: : Past Medical History - General Information source: Patient - Social History Smoking Status: Current Every Day Smoker Smoking Education Provided: Yes - <3 min Frequency of alcohol use: None Drug Abuse: None Lives with: Family Family History: Reviewed & Not Pertinent - Medical History Medical History: Negative Renal/ Medical History: Denies: Hx Peritoneal Dialysis Past Surgical History: Reports: Hx Tubal Ligation - Immunizations Hx Diphtheria, Pertussis, Tetanus Vaccination: Yes - 2014 Vertical Provider Document - CONSTITUTIONAL General Appearance: WD/WN, No Apparent Distress - INFECTION CONTROL TRAVEL OUTSIDE OF THE [place] IN LAST 30 DAYS: No - HEENT HEENT: Atraumatic, Normocephalic. negative: Normal ENT Exam - Minimal nasal and sinus congestion, otherwise normal ENT exam - NECK Neck: Normal Inspection - RESPIRATORY Respiratory: No Respiratory Distress, Wheezing - Expiratory wheezes throughout, occasional congested cough O2 Sat by Pulse Oximetry: 95 - CARDIOVASCULAR Cardiovascular: Regular Rate, Regular Rhythm - GI/ABDOMEN Gastrointestinal: Abdomen Soft, Abdomen Non-Tender - BACK Back: Normal Inspection - MUSCULOSKELETAL/EXTREMETIES Musculoskeletal/Extremeties: MAEW, FROM, Non-Tender - NEURO Level of Consciousness: Awake, Alert, Appropriate - DERM Integumentary: Warm, Dry, No Rash Course - Re-evaluation Re-evalutation: Patient wheezing on initial presentation, this did resolve with DuoNeb treatment , patient given prednisone. Chest x-ray, EKG with no acute abnormality. Consistent with bronchitis again, no evidence of pneumonia, very low suspicion of ACS based on presentation. Patient will be treated with another course of prednisone, provided with an albuterol inhaler, symptom management, discussed smoking cessation, discussed follow-up, discussed return precautions in detail. Patient states satisfaction and agreement with plan. - Vital Signs Vital signs: Temp Pulse Resp BP Pulse Ox 98.5 F 83 16 116/76 95 12/10/17 18:25 12/10/17 18:25 12/10/17 18:25 12/10/17 18:25 12/10/17 18:25 Discharge - Discharge Clinical Impression: Cough, Wheezing Condition: Stable Disposition: HOME, SELF-CARE Additional Instructions: Chest x-ray and EKG do not show any concerning findings.. Evaluation shows evidence of bronchitis. Take prednisone as prescribed, take Tessalon during the day for cough if needed, take Hycodan at night for cough only if needed, drink plenty of fluids and rest. Stop smoking. Follow-up with primary care. Return if you worsen including increased difficulty breathing, spiking fever, vomiting, or any other concerning symptoms. Prescriptions: Hydrocodone Bit/Homatropine [Hycodan Syrup 5-1.5 mg/5 ml Ud Cup] 5 ml PO Q4HP PRN #120 ml PRN Reason: Benzonatate [Tessalon Perle 100 mg Capsule] 100 mg PO Q8HP PRN #20 cap PRN Reason: Albuterol Sulfate [Proair HFA Inhalation Aerosol 8.5 gm MDI] 2 puff IH Q4H PRN # 1 mdi PRN Reason: Prednisone 60 mg PO DAILY #15 tablet Forms: Return to Work, Smoking Cessation Education
--- NOTE | 2017-12-10 20:50 | RADIOLOGY REPORT (SQ) ---
EXAM DESCRIPTION: CHEST PA/LAT COMPLETED DATE/TIME: 12/10/2017 8:25 pm REASON FOR STUDY: productive cough, chills, shortness of breath COMPARISON: 11/21/2017 EXAM PARAMETERS: NUMBER OF VIEWS: two views TECHNIQUE: Digital Frontal and Lateral radiographic views of the chest acquired. RADIATION DOSE: NA LIMITATIONS: none FINDINGS: LUNGS AND PLEURA: No opacities, masses or pneumothorax. No pleural effusion. MEDIASTINUM AND HILAR STRUCTURES: No masses or contour abnormalities. HEART AND VASCULAR STRUCTURES: Heart normal size. No evidence for failure. BONES: No acute findings. HARDWARE: None in the chest. OTHER: No other significant finding. IMPRESSION: NO SIGNIFICANT RADIOGRAPHIC FINDING IN THE CHEST. TECHNICAL DOCUMENTATION: JOB ID: [id number] [employer]- All Rights Reserved
[2017-12-10] MEDS ORDERED: ALBUTEROL SULFATE HFA (90 MCG/PUFF) 8 GM MDI (1 MDI/ER DISP) IH ONE (21:28)
--- NOTE | 2017-12-11 09:26 | EKG REPORT ---
SEVERITY:- BORDERLINE ECG - SINUS RHYTHM PROBABLE LEFT ATRIAL ABNORMALITY : Confirmed by: Tami Kelly 11-Dec-2017 09:25:39
== END 2017-12-10 21:47 | disposition home or self-care (01) ==
LOC: ER 17:37
DX: R05 Cough (principal); R06.2 Wheezing; R06.02 Shortness of breath; F17.200 Nicotine dependence, unspecified, uncomplicated
CPT/HCPCS: 93005; 94640; 99283; 71046; 93010; J7512; J3490; J7620